=== PATIENT | male | born 1960 | race African-American/Black ===

== ENCOUNTER → 2017-07-10 | Outpatient (CLI) | payer MEDICARE, OTHER ==
--- NOTE | 2017-07-10 10:44 | RADIOLOGY REPORT (SQ) ---
EXAM DESCRIPTION: U/S RETROPERITON (RENAL/AORTA) COMPLETED DATE/TIME: 07/10/2017 9:37 am REASON FOR STUDY: BUDDY (I70.1) I70.1 ATHEROSCLEROSIS OF RENAL ARTERY I10 ESSENTIAL (PRIMARY) HYPERT ENSION COMPARISON: None. TECHNIQUE: Dynamic and static grayscale images acquired of the kidneys and bladder and recorded on P ACS. Additional selected color Doppler and spectral images recorded. LIMITATIONS: None. FINDINGS: RIGHT KIDNEY: Normal size, 11 cm. Normal echogenicity. No solid or suspicious masses. No h ydronephrosis. No calcifications. LEFT KIDNEY: Normal size, 11 cm. Normal echogenicity. Cannot exclude a 6.4 x 4.1 cm mass involving than mid cortex . No hydronephrosis. No calcifications. BLADDER: No masses. OTHER FINDINGS: No other significant finding. IMPRESSION: Cannot exclude left renal mass. Possible dromedary hump. Consider CT without and with contrast for further evaluation. TECHNICAL DOCUMENTATION: JOB ID: [id number] [employer]- All Rights Reserved
--- NOTE | 2017-07-10 11:02 | RADIOLOGY REPORT (SQ) ---
EXAM DESCRIPTION: U/S LTD DUPLEX ART/PAULINA FLOW COMPLETED DATE/TIME: 07/10/2017 9:37 am REASON FOR STUDY: BUDDY (I70.1) I70.1 ATHEROSCLEROSIS OF RENAL ARTERY I10 ESSENTIAL (PRIMARY) HYPERT ENSION COMPARISON: Renal ultrasound same date TECHNIQUE: Realtime and static grayscale images acquired. Selected color Doppler, velocities and spe ctral images recorded. LIMITATIONS: Limited view of the bilateral proximal renal arteries off the aorta FINDINGS: RIGHT KIDNEY: RENAL ARTERY VELOCITIES: At the hilum, 106 cm/sec. Segmental artery velocity 35 cm/sec. RENAL VEIN: Color doppler flow present, patent. VELOCITY RATIO: 1.2. Normal waveforms. KIDNEY: 11 cm in length with normal cortical thickness and echogenicity. No significant pathology. LEFT KIDNEY: RENAL ARTERY VELOCITIES: At the hilum, 97 cm/sec. Segmental artery velocity 30 cm/sec. RENAL VEIN: Color doppler flow present, patent. VELOCITY RATIO: 1.1. Normal waveforms. KIDNEY: 11 cm in length. Renal ultrasound dictated separately demonstrates a left kidney dromedary hump versus midpole renal mass for which dedicated CT of the kidneys without and with contrast recom mended for followup. BLADDER: Normal. OTHER: No other significant finding. IMPRESSION: NO DOPPLER EVIDENCE OF HEMODYNAMICALLY SIGNIFICANT RENAL ARTERY STENOSIS. DROMEDARY HUMP VERSUS MASS LEFT MID POLE KIDNEY FOR WHICH DEDICATED CT OF THE KIDNEYS IS RECOMMENDED WITHOUT AND WITH CONTRAST COMMENT: NORMAL RENAL ARTERY/AORTA VELOCITY RATIO IS LESS THAN OR EQUAL TO 3.5. TECHNICAL DOCUMENTATION: JOB ID: [id number] [employer]- All Rights Reserved
== END ==
LOC: RAD 07:56
PROVIDERS: ATTEND Physician Assistant
DX: I70.1 Atherosclerosis of renal artery (principal); I15.8 Other secondary hypertension
CPT/HCPCS: 76770; 93976